=== PATIENT | female | born 2000 | race African-American/Black ===

== ENCOUNTER 2024-03-27 22:04 | Emergency (ER) | payer SELFPAY ==
[~2024-03-27] VITALS: Ht 160 cm; Wt 68.0 kg
[2024-03-27] MEDS: IBUPROFEN 400 MG TAB PO ONE (23:19)
[2024-03-28 00:35] VITALS: PULSE 70; RESP 16; TEMP 98
[2024-03-28 00:50] VITALS: BP 129/78; O2SAT 99
== END 2024-03-28 00:54 | disposition home or self-care (01) ==
LOC: FSED 22:25
DX: S82.52XA Displaced fracture of medial malleolus of left tibia, initial encounter for closed fracture (principal); X50.1XXA Overexertion from prolonged static or awkward postures, initial encounter; Y93.01 Activity, walking, marching and hiking; Y92.89 Other specified places as the place of occurrence of the external cause
CPT/HCPCS: 99284